=== PATIENT | female | born 1955 | race Caucasian/White ===

== ENCOUNTER → 2016-09-23 | Outpatient (CLI) | payer MEDICARE, MEDICAID ==
[~2016-09-23] MED LIST: 00186-0370-20 IH; ALBUTEROL1.25 MG/3 IH; ALEVE 220MG220 MG PO; AMITRIPTYLINE H50 M1 PO; ASPIRIN 81M81 MG/TA2 PO; CELEXA40 MG PO; COREG 3.123.125 MG/T PO; COREG 6.256.25 MG/TA PO; COUMADIN 1010 MG/TAB PO; COUMADIN 1MG1 MG/TAB PO; COUMADIN 22.5 MG/TAB PO; DEMADEX 20MG20 M1 PO; DOXYCYCLINE 10100 MG PO; DULCOLAX STOOL100 MG PO; EXCEDRIN1 TAB PO; FERROUS SU325 MG/TAB PO; FISH OIL500 MG PO; FLAGYL 250250 MG/TAB PO; FLEXERIL 1010 MG/TAB PO; GLUCOPHAGE1000 MG PO; HAIRSKINNAILS PO; IMDUR 30MG30 MG/TAB PO; IPRATROPIUM BROM3 M1 IH; KLONOPIN 1MG1 MG PO; KLOR-CON 1010 MEQ PO; KLOR-CON SPRIN10 MEQ PO; LASIX 20MG TABL20 MG PO; LASIX 40MG TABL40 MG PO; LEVAQUIN 5500 MG/TA1 PO; LEVEMIR FLEX100 U/ML SQ; MAG-OX 400400 MG/TAB PO; MIRALAX PA17 GM/Dose PO; MULTI VITAMINS1 TAB PO; NORCO 325 MG-51 TAB PO; OMEGA-31 SGL PO; PRIL40 PO; PROAIR HFA0.09 MG/AC IH; RT SPIRIVA18 MCG IH; STOOL SOFTENER100 M2 PO; TYLENOL 500MG500 MG PO; VENTOLIN0.09 MG IH; VISTARIL 2525 MG/CAP PO; VITAMIN B COMPL1 T16 PO; VOLTAREN GEL 1%1 TU TP; XANAX 0.5MG0.5 MG PO
== END ==
LOC: COL.RAD 11:18
DX: D47.2 Monoclonal gammopathy (principal); I51.7 Cardiomegaly; M51.37 Other intervertebral disc degeneration, lumbosacral region

== ENCOUNTER 2016-10-04 10:59 | Inpatient (IN) | payer MEDICARE, MEDICAID ==
[~2016-10-04] VITALS: Ht 170.2 cm; Wt 100.3 kg
[~2016-10-04 10:59] MED LIST changes: -DULCOLAX STOOL100 MG PO; -FLAGYL 250250 MG/TAB PO; -LEVAQUIN 5500 MG/TA1 PO
[2016-10-04] MEDS ORDERED: MIRALAX PA17 GM/Dose PO (11:47)
[2016-10-04] MEDS ORDERED: DULCOLAX STOOL100 MG PO (11:49)
[2016-10-04] MEDS ORDERED: TYLENOL 500MG500 MG PO (11:52)
[2016-10-04] MEDS ORDERED: KLOR-CON 1010 MEQ PO (11:54)
[2016-10-04] MEDS ORDERED: XANAX 0.5MG0.5 MG PO (11:55)
[2016-10-04 12:26] VITALS: BP 113/67; PULSE 67; TEMP 97.8
[2016-10-04 14:03] LABS: HEMATOCRIT 34.9 % (37.0-47.0); HEMOGLOBIN 10.8 g/dl (12.5-16.0); MEAN CELL VOLUME 87 fl (80.0-100.0); MEAN CORPUSCULAR HEMOGLOBIN 27 pg (27.0-31.0); MEAN CORPUSCULAR HGB CONC 31 g/dl (33.0-37.0); MEAN PLATELET VOLUME 10.9 fl (7.4-10.4); PLATELET COUNT 217 K/mm3 (130-400); RED BLOOD COUNT 4.01 M/mm3 (4.10-5.30); REDCELL DISTRIBUTION WIDTH-CV 23.6 % (11.5-14.5)
[2016-10-04 14:28] LABS: INR 2.2 (0.8-3.0); PROTHROMBIN TIME 24.5 SECONDS (9.7-12.8)
[2016-10-04 15:14] VITALS: BP 119/60; PULSE 71; TEMP 98.7
[2016-10-04 19:33] VITALS: BP 108/70; PULSE 76; TEMP 98.3
[2016-10-04 23:54] VITALS: BP 107/65; PULSE 73; TEMP 97.5
[2016-10-05 04:25] VITALS: BP 97/55; PULSE 66; TEMP 97.7
[2016-10-05 05:40] LABS: INR 1.9 (0.8-3.0)
[2016-10-05 07:32] VITALS: BP 103/58; PULSE 78; TEMP 97.9
[2016-10-05 11:37] VITALS: BP 130/74; PULSE 72; TEMP 97.9
[2016-10-05 15:43] VITALS: BP 130/73; PULSE 70; TEMP 98.3
[2016-10-05 19:37] VITALS: BP 116/62; PULSE 64; TEMP 98.2
[2016-10-06 01:08] VITALS: BP 119/73; PULSE 70; TEMP 98.3
[2016-10-06 04:50] LABS: MEAN CELL VOLUME 90 fl (80.0-100.0); MEAN CORPUSCULAR HGB CONC 30 g/dl (33.0-37.0); MEAN PLATELET VOLUME 11.5 fl (7.4-10.4); PLATELET COUNT 231 K/mm3 (130-400); RED BLOOD COUNT 3.81 M/mm3 (4.10-5.30); REDCELL DISTRIBUTION WIDTH-CV 22.9 % (11.5-14.5)
[2016-10-06 04:53] LABS: HEMATOCRIT 34.3 % (37.0-47.0); HEMOGLOBIN 10.3 g/dl (12.5-16.0); MEAN CORPUSCULAR HEMOGLOBIN 27 pg (27.0-31.0)
[2016-10-06 05:14] LABS: INR 1.4 (0.8-3.0)
[2016-10-06 07:23] VITALS: BP 99/56; PULSE 64; TEMP 98
[2016-10-06 12:20] VITALS: BP 122/49; PULSE 71; TEMP 98.1
[2016-10-06 15:51] VITALS: BP 97/54; PULSE 69; TEMP 98.6
[2016-10-06 20:50] VITALS: BP 119/63; PULSE 70; TEMP 98.3
[2016-10-06 23:10] VITALS: BP 117/61; PULSE 69; TEMP 98.2
[2016-10-07] VITALS (8 sets, daily range): BP systolic 100–1236; BP diastolic 52–76; PULSE 70–78; TEMP 97.8–98.8
[2016-10-07 08:46] LABS: INR 1.3 (0.8-3.0); PROTHROMBIN TIME 14.6 SECONDS (9.7-12.8)
[2016-10-08 04:24] VITALS: BP 107/70; PULSE 73; TEMP 98.4
[2016-10-08 05:20] LABS: MEAN CELL VOLUME 86 fl (80.0-100.0); MEAN CORPUSCULAR HGB CONC 32 g/dl (33.0-37.0); MEAN PLATELET VOLUME 10.9 fl (7.4-10.4); PLATELET COUNT 219 K/mm3 (130-400); RED BLOOD COUNT 4.19 M/mm3 (4.10-5.30); REDCELL DISTRIBUTION WIDTH-CV 22.2 % (11.5-14.5); WHITE BLOOD COUNT 9.8 K/mm3 (4.8-10.8)
[2016-10-08 05:22] LABS: HEMATOCRIT 36.2 % (37.0-47.0); HEMOGLOBIN 11.5 g/dl (12.5-16.0); MEAN CORPUSCULAR HEMOGLOBIN 27 pg (27.0-31.0)
[2016-10-08 05:26] LABS: INR 1.2 (0.8-3.0); PROTHROMBIN TIME 13.8 SECONDS (9.7-12.8)
[2016-10-08 08:26] VITALS: BP 103/56; PULSE 66; TEMP 97.6
[2016-10-08 13:05] VITALS: BP 111/70; PULSE 71; TEMP 97.4
[2016-10-08 15:32] VITALS: BP 104/52; PULSE 68; TEMP 97.6
[2016-10-08 20:18] VITALS: BP 118/62; PULSE 73; TEMP 97.6
[2016-10-09 00:12] VITALS: BP 126/74; PULSE 88; TEMP 97
[2016-10-09 03:17] VITALS: BP 109/50; PULSE 71; TEMP 97.6
[2016-10-09 03:22] LABS: INR 1.3 (0.8-3.0); PROTHROMBIN TIME 14.7 SECONDS (9.7-12.8)
[2016-10-09 07:59] VITALS: BP 101/48; PULSE 67; TEMP 97.9
[2016-10-09 11:19] VITALS: BP 97/53; PULSE 71; TEMP 98
[2016-10-09 15:29] VITALS: BP 105/56; PULSE 70; TEMP 98
[2016-10-09 21:01] VITALS: BP 117/83; PULSE 69; TEMP 98
[2016-10-10 00:51] VITALS: BP 99/50; PULSE 70; TEMP 97.6
[2016-10-10 04:11] VITALS: BP 116/61; PULSE 71; TEMP 97.6
[2016-10-10 05:51] LABS: HEMATOCRIT 37.4 % (37.0-47.0); MEAN CELL VOLUME 85 fl (80.0-100.0); MEAN CORPUSCULAR HEMOGLOBIN 27 pg (27.0-31.0); MEAN CORPUSCULAR HGB CONC 32 g/dl (33.0-37.0); MEAN PLATELET VOLUME 11.1 fl (7.4-10.4); PLATELET COUNT 214 K/mm3 (130-400); RED BLOOD COUNT 4.41 M/mm3 (4.10-5.30); REDCELL DISTRIBUTION WIDTH-CV 20.4 % (11.5-14.5); WHITE BLOOD COUNT 8.2 K/mm3 (4.8-10.8)
[2016-10-10 05:52] LABS: HEMOGLOBIN 11.9 g/dl (12.5-16.0)
[2016-10-10 06:17] LABS: INR 2.5 (0.8-3.0); PROTHROMBIN TIME 28.2 SECONDS (9.7-12.8)
[2016-10-10 08:14] VITALS: BP 106/44; PULSE 71; TEMP 97.8
[2016-10-10 12:36] VITALS: BP 125/69; PULSE 69; TEMP 97.8
[2016-10-10 15:59] VITALS: BP 143/73; PULSE 73; TEMP 97.9
[2016-10-10] MEDS ORDERED: FLAGYL 250250 MG/TAB PO (17:17)
[2016-10-10] MEDS ORDERED: LEVAQUIN 5500 MG/TA1 PO (17:17)
[2016-11-11] MEDS ORDERED: DEMADEX 20MG20 M1 PO (10:41)
== END 2016-10-10 18:30 | disposition home or self-care (01) | DRG 394 ==
LOC: MEDICAL 10:59
PROVIDERS: Internal Medicine; Internal Medicine Gastroenterology; Internal Medicine Interventional Cardiology
PROC: 0DBP8ZX Excision of Rectum, Via Natural or Artificial Opening Endoscopic, Diagnostic (ICD-10-PCS; principal; 2016-10-07 12:15)
DX: D12.8 Benign neoplasm of rectum (principal); K57.32 Diverticulitis of large intestine without perforation or abscess without bleeding; I50.32 Chronic diastolic (congestive) heart failure; Z95.2 Presence of prosthetic heart valve; Z79.01 Long term (current) use of anticoagulants; Z95.0 Presence of cardiac pacemaker; E11.42 Type 2 diabetes mellitus with diabetic polyneuropathy; Z79.4 Long term (current) use of insulin; I48.91 Unspecified atrial fibrillation; J44.9 Chronic obstructive pulmonary disease, unspecified; Z87.891 Personal history of nicotine dependence
CPT/HCPCS: J1644; J1815; J2250; J3010; J7030

== ENCOUNTER 2016-11-15 12:26 | Outpatient (CLI) | payer MEDICARE, MEDICAID ==
[~2016-11-15] VITALS: Ht 170.2 cm; Wt 106.8 kg
[~2016-11-15 12:26] MED LIST changes: +DULCOLAX STOOL100 MG PO; +FLAGYL 250250 MG/TAB PO; +LEVAQUIN 5500 MG/TA1 PO
[2016-11-15 12:59] VITALS: BP 120/78; PULSE 78
[2016-11-15 13:34] LABS: INR 1.5 (0.8-3.0); PROTHROMBIN TIME 16.6 SECONDS (9.7-12.8)
[2016-11-15 14:40] VITALS: BP 122/71; PULSE 77; TEMP 97.3
[2016-11-15 14:45] VITALS: BP 130/79; PULSE 79
[2016-11-15 14:55] VITALS: BP 127/77; PULSE 83
[2016-11-15 15:10] VITALS: BP 107/72; PULSE 76
[2016-11-15 15:37] VITALS: BP 122/83; PULSE 82
== END 2016-11-15 17:20 | disposition home or self-care (01) ==
LOC: COL.RAD 12:26
PROVIDERS: Internal Medicine
DX: M43.17 Spondylolisthesis, lumbosacral region (principal); M51.37 Other intervertebral disc degeneration, lumbosacral region; M47.896 Other spondylosis, lumbar region; Z79.01 Long term (current) use of anticoagulants
CPT/HCPCS: Q9965

== ENCOUNTER 2017-03-17 21:25 | Observation (INO) | payer MEDICARE, MEDICAID ==
[~2017-03-17] VITALS: Ht 170.2 cm; Wt 105.6 kg
[2017-03-17 22:15] LABS: BASO # 0.1 (0.0-0.2); BASO % 0.5 % (0.0-2.0); EOS # 0.3 (0.0-0.7); EOS % 2.6 % (0-4.0); GRAN # 7.1 (1.4-6.5); GRAN % 64.3 % (42.2-75.2); HEMATOCRIT 40.1 % (37.0-47.0); LYMPH # 2.2 (1.2-3.4); LYMPH % 20.1 % (20.0-51.0); MEAN CELL VOLUME 88 fl (80.0-100.0); MEAN CORPUSCULAR HEMOGLOBIN 29 pg (27.0-31.0); MEAN CORPUSCULAR HGB CONC 32 g/dl (33.0-37.0); MEAN PLATELET VOLUME 11.2 fl (7.4-10.4); MONO # 1.3 (0.1-0.6); MONO % 12.2 % (1.7-9.3); PLATELET COUNT 206 K/mm3 (130-400); RED BLOOD COUNT 4.55 M/mm3 (4.10-5.30); REDCELL DISTRIBUTION WIDTH-CV 15.9 % (11.5-14.5)
[2017-03-17 22:31] LABS: ADJUSTED CALCIUM 8.9 mg/dL (8.4-10.2); ALBUMIN 4.7 gm/dL (3.5-5.0); BILIRUBIN,TOTAL 0.9 mg/dL (0.0-1.0); CALCIUM 9.5 mg/dL (8.4-10.2); CREATININE, serum 1.03 mg/dL (0.52-1.25); TOTAL PROTEIN 8.9 gm/dL (6.4-8.2)
[2017-03-17] MEDS ORDERED: NORCO 325 MG-51 TAB PO (22:40)
[2017-03-17 22:45] LABS: TROPONIN-I 0.037 ng/mL (0.000-0.034)
[2017-03-17 22:55] LABS: INR 2.8 (0.8-3.0); PROTHROMBIN TIME 32.8 SECONDS (9.7-12.8)
[2017-03-18 03:22] VITALS: BP 117/74; PULSE 71; TEMP 98.7
[2017-03-18 05:05] LABS: TROPONIN-I 0.041 ng/mL (0.000-0.034)
[2017-03-18 08:11] VITALS: BP 99/68; PULSE 82; TEMP 97.4
[2017-03-18 11:38] VITALS: BP 114/77; PULSE 71; TEMP 97.6
[2017-03-18 16:26] VITALS: BP 105/60; PULSE 78; TEMP 98.4
[2017-03-18 20:30] VITALS: BP 109/47; PULSE 71; TEMP 97.8
[2017-03-19 00:47] VITALS: BP 106/46; PULSE 70; TEMP 97.4
[2017-03-19 05:30] VITALS: BP 111/70; PULSE 71; TEMP 97.9
[2017-03-19 07:29] VITALS: BP 109/66; PULSE 71; TEMP 97.4
[2017-03-19 07:48] LABS: BASO # 0.1 (0.0-0.2); BASO % 0.7 % (0.0-2.0); EOS # 0.3 (0.0-0.7); EOS % 4.1 % (0-4.0); GRAN # 4.7 (1.4-6.5); HEMATOCRIT 38.1 % (37.0-47.0); HEMOGLOBIN 12.5 g/dl (12.5-16.0); LYMPH # 1.7 (1.2-3.4); LYMPH % 22.9 % (20.0-51.0); MEAN CELL VOLUME 89 fl (80.0-100.0); MEAN CORPUSCULAR HEMOGLOBIN 29 pg (27.0-31.0); MEAN CORPUSCULAR HGB CONC 33 g/dl (33.0-37.0); MEAN PLATELET VOLUME 12.1 fl (7.4-10.4); MONO # 0.7 (0.1-0.6); MONO % 9.9 % (1.7-9.3); PLATELET COUNT 239 K/mm3 (130-400); REDCELL DISTRIBUTION WIDTH-CV 16.1 % (11.5-14.5); WHITE BLOOD COUNT 7.5 K/mm3 (4.8-10.8)
[2017-03-19 08:01] LABS: CALCIUM 9.2 mg/dL (8.4-10.2); CREATININE, serum 0.91 mg/dL (0.52-1.25); POTASSIUM 3.6 mmol/L (3.4-5.0)
[2017-03-19] MEDS ORDERED: NORCO 325 MG-51 TAB PO (09:25)
== END 2017-03-19 10:43 | disposition home or self-care (01) ==
LOC: COL.ER 21:25 → MEDICAL 03-18 01:55
PROVIDERS: Emergency Medicine; Internal Medicine; Nurse Practitioner Family
DX: R07.9 Chest pain, unspecified (principal); J44.9 Chronic obstructive pulmonary disease, unspecified; I48.91 Unspecified atrial fibrillation; I11.0 Hypertensive heart disease with heart failure; I50.9 Heart failure, unspecified; E78.5 Hyperlipidemia, unspecified; E11.9 Type 2 diabetes mellitus without complications; Z95.2 Presence of prosthetic heart valve; Z79.4 Long term (current) use of insulin; Z79.01 Long term (current) use of anticoagulants; Z79.84 Long term (current) use of oral hypoglycemic drugs; Z87.891 Personal history of nicotine dependence; Z82.49 Family history of ischemic heart disease and other diseases of the circulatory system
CPT/HCPCS: A9284; G0378; J1170; J7030

== ENCOUNTER 2017-12-22 07:39 | Observation (INO) | payer MEDICARE, MEDICAID ==
[2017-12-22] VITALS (9 sets, daily range): BP systolic 98–137; BP diastolic 63–84; PULSE 94–106; TEMP 97.4–98.4
[~2017-12-22] VITALS: Ht 152.4 cm; Wt 104.1 kg
[~2017-12-22 07:39] MED LIST changes: -CELEXA40 MG PO; +CeleXA PO; +LOVENOX 100100 MG/ML SQ; +PERCOCET 325 MG1 TA2 PO; +THE MEDICINE S200 M2 PO; +VITAMIN B COMPL1 SGL PO; +XANAX 1MG1 MG PO; +ZOCOR 10MG10 MG PO
[2017-12-22 09:18] LABS: PROTHROMBIN TIME 35.7 SECONDS (9.7-12.8)
[2017-12-22 09:20] LABS: CALCIUM 9.4 mg/dL (8.4-10.2); CREATININE, serum 0.86 mg/dL (0.52-1.25); POTASSIUM 3.8 mmol/L (3.4-5.0)
[2017-12-22 09:47] LABS: MEAN CELL VOLUME 89 fl (80.0-100.0); MEAN CORPUSCULAR HGB CONC 32 g/dl (33.0-37.0); MEAN PLATELET VOLUME 11.4 fl (7.4-10.4); PLATELET COUNT 195 K/mm3 (130-400); REDCELL DISTRIBUTION WIDTH-CV 19.5 % (11.5-14.5)
[2017-12-22 09:50] LABS: HEMOGLOBIN 10.3 g/dl (12.5-16.0); MEAN CORPUSCULAR HEMOGLOBIN 29 pg (27.0-31.0)
[2017-12-22] MEDS ORDERED: COZAAR 50MG50 MG/TAB PO (09:53)
[2017-12-22] MEDS ORDERED: COREG 6.256.25 MG/TA PO (09:54)
[2017-12-22] MEDS ORDERED: NORVASC 10MG10 MG PO (09:54)
[2017-12-22 22:59] LABS: BASO % 0.3 % (0.0-2.0); EOS # 0.3 (0.0-0.7); EOS % 4.7 % (0-4.0); GRAN % 60.4 % (42.2-75.2); HEMATOCRIT 32.4 % (37.0-47.0); HEMOGLOBIN 10.3 g/dl (12.5-16.0); LYMPH # 1.5 (1.2-3.4); LYMPH % 22.2 % (20.0-51.0); MEAN CELL VOLUME 90 fl (80.0-100.0); MEAN CORPUSCULAR HEMOGLOBIN 29 pg (27.0-31.0); MEAN CORPUSCULAR HGB CONC 32 g/dl (33.0-37.0); MEAN PLATELET VOLUME 10.8 fl (7.4-10.4); MONO # 0.8 (0.1-0.6); MONO % 11.8 % (1.7-9.3); PLATELET COUNT 214 K/mm3 (130-400); REDCELL DISTRIBUTION WIDTH-CV 19.7 % (11.5-14.5)
[2017-12-22 23:04] LABS: INR 3.2 (0.8-3.0); PROTHROMBIN TIME 38.4 SECONDS (9.7-12.8)
[2017-12-22 23:13] LABS: ALBUMIN 3.9 gm/dL (3.5-5.0); BILIRUBIN,TOTAL 0.6 mg/dL (0.0-1.0); C-REACTIVE PROTEIN 1.6 mg/dL (0.0-0.9); CALCIUM 9.3 mg/dL (8.4-10.2); CREATININE, serum 0.97 mg/dL (0.52-1.25); POTASSIUM 4.2 mmol/L (3.4-5.0)
[2017-12-22 23:25] LABS: ERYTHROCYTE SEDIMENTATION RATE 50 mm/hr (0-30)
[2017-12-23 00:13] VITALS: BP 120/67; PULSE 94; TEMP 98.2
[2017-12-23 03:47] VITALS: BP 124/59; PULSE 96; TEMP 97.2
[2017-12-23 07:40] VITALS: BP 124/72; PULSE 92; TEMP 97.1
== END 2017-12-23 08:15 | disposition short-term general hospital (02) ==
LOC: COL.RAD 07:39 → MEDICAL 14:53 → COL.RAD 14:54 → MEDICAL 14:55 → COL.RAD 12-23 08:15
PROVIDERS: Internal Medicine Interventional Cardiology
DX: T82.09XA Other mechanical complication of heart valve prosthesis, initial encounter (principal); I34.0 Nonrheumatic mitral (valve) insufficiency; I25.10 Atherosclerotic heart disease of native coronary artery without angina pectoris; I11.0 Hypertensive heart disease with heart failure; I50.30 Unspecified diastolic (congestive) heart failure; F32.9 Major depressive disorder, single episode, unspecified; J45.909 Unspecified asthma, uncomplicated; G47.33 Obstructive sleep apnea (adult) (pediatric); K21.9 Gastro-esophageal reflux disease without esophagitis; E11.9 Type 2 diabetes mellitus without complications; Z95.2 Presence of prosthetic heart valve; Z79.01 Long term (current) use of anticoagulants; Z95.810 Presence of automatic (implantable) cardiac defibrillator
CPT/HCPCS: OP; G0378; G9654; J2250; J2704

== ENCOUNTER 2018-09-02 10:59 | Emergency (ER) | payer MEDICARE ==
[~2018-09-02] VITALS: Ht 170.2 cm; Wt 101.8 kg
[~2018-09-02 10:59] MED LIST changes: +COZAAR 50MG50 MG/TAB PO; +NORVASC 10MG10 MG PO
[2018-09-02 11:03] VITALS: BP 118/64; TEMP 98.3
[2018-09-02] MEDS ORDERED: CIPRO HC OTIC S10 ML OT (11:18)
[2018-09-02] MEDS ORDERED: NORCO 325 MG-51 TAB PO (11:18)
[2018-09-02] MEDS ORDERED: AMOXICILLIN 8751 TAB PO (11:18)
[2018-09-02 11:43] VITALS: PULSE 79
== END 2018-09-02 11:43 | disposition home or self-care (01) ==
LOC: COL.ER 10:59
DX: H60.92 Unspecified otitis externa, left ear (principal); Z88.5 Allergy status to narcotic agent; Z79.01 Long term (current) use of anticoagulants

== ENCOUNTER 2018-12-24 16:37 | Emergency (ER) | payer MEDICARE, MEDICAID ==
[~2018-12-24] VITALS: Ht 170.2 cm; Wt 100.0 kg
[~2018-12-24 16:37] MED LIST changes: +AMOXICILLIN 8751 TAB PO; +CIPRO HC OTIC S10 ML OT
[2018-12-24 16:45] VITALS: TEMP 96
[2018-12-24] MEDS ORDERED: TYLENOL 500MG500 MG PO (17:18)
[2018-12-24 19:55] VITALS: BP 111/68; PULSE 78
== END 2018-12-24 19:55 | disposition home or self-care (01) ==
LOC: COL.ER 16:37
DX: G43.909 Migraine, unspecified, not intractable, without status migrainosus (principal); Z87.891 Personal history of nicotine dependence; Z79.01 Long term (current) use of anticoagulants
CPT/HCPCS: J1200; J2300; J2550

== ENCOUNTER 2020-01-15 22:36 | Observation (INO) | payer MEDICARE, MEDICAID ==
[~2020-01-15] VITALS: Ht 170.2 cm; Wt 84.0 kg
[2020-01-15 23:22] LABS: BASO % 0.4 % (0.0-2.0); EOS # 0.3 (0.0-0.7); EOS % 2.8 % (0-4.0); GRAN # 6.8 (1.4-6.5); GRAN % 64.7 % (42.2-75.2); HEMOGLOBIN 11.8 g/dl (12.5-16.0); LYMPH # 2.3 (1.2-3.4); LYMPH % 21.4 % (20.0-51.0); MEAN CELL VOLUME 87 fl (80.0-100.0); MEAN CORPUSCULAR HEMOGLOBIN 30 pg (27.0-31.0); MEAN CORPUSCULAR HGB CONC 34 g/dl (33.0-37.0); MEAN PLATELET VOLUME 11.3 fl (7.4-10.4); MONO # 1.1 (0.1-0.6); MONO % 10.3 % (1.7-9.3); PLATELET COUNT 228 K/mm3 (130-400); RED BLOOD COUNT 3.99 M/mm3 (4.10-5.30)
[2020-01-15 23:23] LABS: HEMATOCRIT 34.8 % (37.0-47.0)
[2020-01-15 23:33] LABS: INR 1.4 (0.8-3.0)
[2020-01-15 23:35] LABS: ALANINE AMINOTRANSFERASE 23 U/L (4-34); ALBUMIN 4.3 gm/dL (3.5-5.0); ALKALINE PHOSPHATASE 117 U/L (50-136); ANION GAP 9 mmol/L (7-16); AST,SGOT 32 U/L (15-37); BILIRUBIN,TOTAL 0.5 mg/dL (0.0-1.0); BLOOD UREA NITROGEN 31 mg/dL (7-17); C-REACTIVE PROTEIN < 0.5 mg/dL (0.0-0.9); CALCIUM 8.9 mg/dL (8.4-10.2); CARBON DIOXIDE 23 mmol/L (22-30); CHLORIDE 103 mmol/L (98-107); CREATININE, serum 1.42 (0.52-1.25); GLUCOSE 91 mg/dL (74-106); SODIUM 134 mmol/L (137-145); TOTAL PROTEIN 7.8 gm/dL (6.4-8.2)
[2020-01-15 23:44] LABS: TROPONIN-I < 0.012 ng/mL (0.000-0.035)
[2020-01-16] VITALS (453 sets, daily range): BP systolic 97–118; BP diastolic 46–72; PULSE 64–74; TEMP 97.5–97.6; O2SAT 69–100
[2020-01-16] MEDS ORDERED: PROTONIX40 MG/Pack PO (00:13)
[2020-01-16] MEDS ORDERED: CHANTIX 1MG1 MG PO (00:16)
[2020-01-16] MEDS ORDERED: FORTAMET500 M1 PO (00:16)
[2020-01-16] MEDS ORDERED: TOPAMAX50 MG PO (00:17)
[2020-01-16] MEDS ORDERED: ARIMIDEX1 MG PO (00:17)
[2020-01-16] MEDS ORDERED: PRISTIQ25 MG PO (00:18)
[2020-01-16] MEDS ORDERED: LINZESS72 MCG PO (00:23)
[2020-01-16] MEDS ORDERED: CALCIUM 600-D 61 TAB PO (02:29)
[2020-01-16] MEDS ORDERED: COLACE 100100 MG/CAP PO (02:30)
[2020-01-16] MEDS ORDERED: DESYREL 50MG50 MG PO (02:31)
[2020-01-16] MEDS ORDERED: BENADRYL25 M2 PO (02:32)
[2020-01-16] MEDS ORDERED: BREO ELLIPTA 21 EACH IH (02:34)
[2020-01-16] MEDS ORDERED: INCRUSE EL62.5 MCG/A IH (02:34)
[2020-01-16] MEDS ORDERED: BREO IH (02:38)
[2020-01-16 03:16] LABS: MAGNESIUM 2.4 mg/dL (1.6-2.3); PHOSPHOROUS 4.4 mg/dL (2.5-4.5)
[2020-01-16 04:12] LABS: COLLECTION METHOD CATHETER
[2020-01-16 04:21] LABS: MUCOUS Present /lpf; PH 6 (5-8); URINE APPEARANCE Hazy; URINE BACTERIA None Seen /hpf; URINE BILIRUBIN Negative (NEGATIVE); URINE BLOOD Negative (NEGATIVE); URINE COLOR Yellow; URINE GLUCOSE Negative (NEGATIVE); URINE KETONE Negative (NEGATIVE); URINE LEUKOCYTE ESTERASE 1+ (NEGATIVE); URINE NITRATE Negative (NEGATIVE); URINE PROTEIN(semi-quant) Negative (NEGATIVE); URINE RBC 0-2 /hpf; URINE UROBILINOGEN Negative (NEGATIVE)
[2020-01-16 06:22] LABS: BASO # 0.1 (0.0-0.2); BASO % 0.6 % (0.0-2.0); EOS # 0.3 (0.0-0.7); GRAN # 5.1 (1.4-6.5); GRAN % 58.6 % (42.2-75.2); HEMOGLOBIN 10.4 g/dl (12.5-16.0); LYMPH # 2.4 (1.2-3.4); LYMPH % 27.7 % (20.0-51.0); MEAN CELL VOLUME 88 fl (80.0-100.0); MEAN CORPUSCULAR HEMOGLOBIN 29 pg (27.0-31.0); MEAN CORPUSCULAR HGB CONC 33 g/dl (33.0-37.0); MEAN PLATELET VOLUME 11.8 fl (7.4-10.4); MONO # 0.8 (0.1-0.6); MONO % 9.6 % (1.7-9.3); PLATELET COUNT 194 K/mm3 (130-400); RED BLOOD COUNT 3.62 M/mm3 (4.10-5.30)
--- NOTE | 2020-01-16 06:28 | NUR ---
PT'S BP AT 70-80'S SYTOLIC WHEN SLEEOING BUT ONCE AWAKEN, PT GOES BACK TO 90'S. PT ASYMPTOMATIC. DR SLATER NOTIFIED AND ORDERED BOLUS OF NS 500 ML.
[2020-01-16 06:38] LABS: INR 1.6 (0.8-3.0); PROTHROMBIN TIME 18.6 SECONDS (9.7-12.8)
[2020-01-16 07:17] LABS: CALCIUM 8.9 mg/dL (8.4-10.2); CREATININE, serum 1.27 (0.52-1.25); POTASSIUM 3.7 mmol/L (3.4-5.0)
--- NOTE | 2020-01-16 07:36 | NUR ---
REPORT GIVEN TO [place] FRIAS.
--- NOTE | 2020-01-16 07:37 | NUR ---
0117 - REPORT RECEIVED FROM [place] NORMAN. 0145 - PT ARRIVED IN UNIT, ABLE TO TRANSFER SELF FROM STRETCHER TO BED INDEPENDENTLY. VSS, ON ROOM AIR, DENIES ANY PAIN OR SOB. 0150 - ZENAIDA MCKAY AT BEDSIDE.
--- NOTE | 2020-01-16 08:34 | NUR ---
Pt assessment complete. Pt received her NS bolus, BP improved. Pt is sitting up in bed upon entry, she is A/O x4. Her breathing is even and unlabored on RA. Pt denies SOB, no cough. She currently only reports pain and N/T to bilateral feet, she reports this is chronic. No N/V present. Pt denies any body aches. Reports she did not sleep very well. Breakfast at bedside. Pt has no other needs at this time. Will continue to monitor.
--- NOTE | 2020-01-16 08:46 | NUR ---
Pt reports taking ARIMIDEX daily, last taken 01/14 am. Any staff contact with urine or stool will require chemotherapy precautions using double gloves and gown.
--- NOTE | 2020-01-16 09:14 | NUR ---
SW contacted the patient to discuss discharge plan. The patient lives in [place] with her daughter, Mark Brice (ph#[phone]). She reports independence with ADLs and has a cane and walker. The patient's PCP is Dr. Cas Arriola and she receives her medications at the [facility] in [place]. She reports no difficulties obtaining her meds. The patient does not have advanced directives in EMR, but she reports that she does have them completed. She states that her two daughters are her DPOA-HC: Mark and Freya Vuong (ph#[phone]). The patient plans to return back home with her daughter upon discharge. The patient is pending results for COVID-19. SW to continue to follow as needed.
[2020-01-16] MEDS ORDERED: LOVENOX120 MG/0.8 SQ (11:49)
--- NOTE | 2020-01-16 12:53 | NUR ---
The patient was downgraded to observation status. SW contacted the patient to inform. The patient is suspect for COVID-19. SW read the SIMEON form outloud to the patient. The patient verbalized understand and gave SW approval to sign the form on her behalf. The patient is to discharge back home today, 01/15. No additional needs at this time.
--- NOTE | 2020-01-16 16:00 | NUR ---
Discharge instructions and paperwork reviewed with patient. All questions answered at this time, pt instructed to self quarantine until results of COVID test are back, as well as close contact personel. IV to LFA dc'd catheter intact. Pt wheeled out using COVID protocol.
[2020-01-17 12:34] LABS: CK total - for Isoenzymes 25 U/L (26 - 192)
== END 2020-01-16 16:00 | disposition home or self-care (01) ==
LOC: COL.ER 22:36 → EU 01-16 00:29
PROVIDERS: Emergency Medicine; Nurse Practitioner Family; ADMIT Internal Medicine
DX: R79.1 Abnormal coagulation profile (principal); G43.109 Migraine with aura, not intractable, without status migrainosus; I11.0 Hypertensive heart disease with heart failure; I50.30 Unspecified diastolic (congestive) heart failure; I48.91 Unspecified atrial fibrillation; E78.5 Hyperlipidemia, unspecified; D64.9 Anemia, unspecified; J44.9 Chronic obstructive pulmonary disease, unspecified; E11.9 Type 2 diabetes mellitus without complications; F41.9 Anxiety disorder, unspecified; F32.9 Major depressive disorder, single episode, unspecified; F43.10 Post-traumatic stress disorder, unspecified; R53.81 Other malaise; F17.210 Nicotine dependence, cigarettes, uncomplicated; Z79.01 Long term (current) use of anticoagulants; Z79.51 Long term (current) use of inhaled steroids; Z79.899 Other long term (current) drug therapy; Z88.8 Allergy status to other drugs, medicaments and biological substances; Z85.3 Personal history of malignant neoplasm of breast; Z90.11 Acquired absence of right breast and nipple; Z88.5 Allergy status to narcotic agent; Z88.6 Allergy status to analgesic agent
CPT/HCPCS: J1170; J1650; J7040

== ENCOUNTER 2020-03-02 10:44 | Day surgery (SDC) | payer MEDICARE ==
[~2020-03-02] VITALS: Ht 170.2 cm; Wt 84.3 kg
[~2020-03-02 10:44] MED LIST changes: +ARIMIDEX1 MG PO; +BENADRYL25 M2 PO; +BREO ELLIPTA 21 EACH IH; +BREO IH; +CALCIUM 600-D 61 TAB PO; +CHANTIX 1MG1 MG PO; +COLACE 100100 MG/CAP PO; +DESYREL 50MG50 MG PO; +FORTAMET500 M1 PO; +INCRUSE EL62.5 MCG/A IH; +LINZESS72 MCG PO; +LOVENOX120 MG/0.8 SQ; +PRISTIQ25 MG PO; +PROTONIX40 MG/Pack PO; +TOPAMAX50 MG PO
[2020-03-02] MEDS ORDERED: LOVENOX 4040 MG/0.4 SQ (11:32)
[2020-03-02] MEDS ORDERED: ARIMIDEX1 MG PO (11:43)
[2020-03-02] MEDS ORDERED: ZOCOR 40MG40 MG PO (11:44)
[2020-03-02] MEDS ORDERED: COREG 6.256.25 MG/TA PO (11:44)
[2020-03-02] MEDS ORDERED: CHANTIX 1MG1 MG PO (11:45)
[2020-03-02] MEDS ORDERED: TOPAMAX50 MG PO (11:45)
[2020-03-02] MEDS ORDERED: PRISTIQ25 MG PO (11:45)
[2020-03-02] MEDS ORDERED: COZAAR 50MG50 MG/TAB PO (11:46)
[2020-03-02] MEDS ORDERED: NORVASC 10MG10 MG PO (11:46)
[2020-03-02] MEDS ORDERED: XANAX 1MG1 MG PO (11:46)
[2020-03-02] MEDS ORDERED: DEMADEX 20MG20 M1 PO (11:47)
[2020-03-02] MEDS ORDERED: PROTONIX 40MG T40 MG PO (11:47)
[2020-03-02] MEDS ORDERED: GLUCOPHAGE500 MG/TAB PO (11:48)
[2020-03-02] MEDS ORDERED: THE MEDICINE S200 M2 PO (11:48)
[2020-03-02] MEDS ORDERED: COUMADIN 1010 MG/TAB PO (11:48)
[2020-03-02] MEDS ORDERED: MULTIPLE VITAMI1 CAP PO (11:49)
[2020-03-02] MEDS ORDERED: CALCIUM CITRAT950 MG PO (11:49)
[2020-03-02] MEDS ORDERED: MAGNESIUM250 M1 PO (11:49)
[2020-03-02 11:50] VITALS: BP 121/75; PULSE 63; TEMP 97.7
[2020-03-02] MEDS ORDERED: COLACE 100100 MG/CAP PO (11:50)
[2020-03-02 12:40] VITALS: BP 97/72; PULSE 62; TEMP 97.8
--- NOTE | 2020-03-02 12:40 | NUR ---
Patient arrives to [facility] via cart, accompanied by Endo RN Shelia. She is alert, awake. She ambulates to the chair in her room with standby assist and steady gait. Monitoring is applied - VSS and WNL on room air. She denies pain or nausea. Her daughter is brought to the bedside. She is offered and receives water and a muffin to eat.
[2020-03-02 12:55] VITALS: BP 118/88; PULSE 63
--- NOTE | 2020-03-02 12:55 | NUR ---
Patient is resting comfortably in room. Tolerating PO well.
--- NOTE | 2020-03-02 13:07 | NUR ---
Patient is escorted to the restroom by staff. She voids and returns to room.
[2020-03-02 13:10] VITALS: BP 119/70; PULSE 61
--- NOTE | 2020-03-02 13:20 | NUR ---
Dr. Rangel comes to the bedside and has a lengthy conversation with the patient and her daughter regarding the procedure/the patient's symptoms.
--- NOTE | 2020-03-02 13:28 | NUR ---
Patient has met discharge criteria. Discharge instructions are discussed. She denies any questions and verbalizes understanding. PIV is removed with catheter intact and hemostasis achieved. She is changing to her clothing independently.
--- NOTE | 2020-03-02 13:37 | NUR ---
Patient is escorted to the exit via wheelchair by staff. SHe is discharged to home with ride in private vehicle at 1337.
== END 2020-03-02 13:37 | disposition home or self-care (01) ==
LOC: SDCO 10:44
DX: K63.89 Other specified diseases of intestine (principal); K57.30 Diverticulosis of large intestine without perforation or abscess without bleeding; K59.00 Constipation, unspecified; K52.9 Noninfective gastroenteritis and colitis, unspecified; D64.9 Anemia, unspecified; I10 Essential (primary) hypertension; K21.9 Gastro-esophageal reflux disease without esophagitis; E78.00 Pure hypercholesterolemia, unspecified; Z95.2 Presence of prosthetic heart valve; Z86.010 Personal history of colon polyps; Z88.8 Allergy status to other drugs, medicaments and biological substances; Z87.891 Personal history of nicotine dependence
CPT/HCPCS: J2704; J7030

== ENCOUNTER → 2020-07-30 | Outpatient (CLI) | payer MEDICARE, MEDICAID ==
[~2020-07-30] MED LIST changes: +CALCIUM CITRAT950 MG PO; +GLUCOPHAGE500 MG/TAB PO; +LOVENOX 4040 MG/0.4 SQ; +MAGNESIUM250 M1 PO; +MULTIPLE VITAMI1 CAP PO; +PROTONIX 40MG T40 MG PO; +ZOCOR 40MG40 MG PO
== END ==
LOC: COL.RAD 08:16
DX: D64.9 Anemia, unspecified (principal)
CPT/HCPCS: A9560

== ENCOUNTER → 2021-06-17 | Outpatient (CLI) | payer MEDICARE, MEDICAID | LOC: COL.RAD 06-10 14:00 | DX: Z12.2 Encounter for screening for malignant neoplasm of respiratory organs (principal); F17.210 Nicotine dependence, cigarettes, uncomplicated ==